=== PATIENT | female | born 1980 | race Caucasian/White ===

== ENCOUNTER 2018-04-02 07:15 | Inpatient (IN) | payer OTHER ==
[~2018-04-02 07:15] MED LIST: Dexamethasone 4 MG/ML SDV ONE; Glycopyrrolate 0.2 MG/ML 5 ML MDV ONE; Neostigmine Methylsulfate 1 MG/ML 5 ML Syringe ONE; Ondansetron 4 MG/2 ML SDV ONE; Propofol 200 MG/20 ML SDV ONE; Rocuronium 50 MG/5 ML Vial ONE; Succinylcholine 200 MG/10 ML MDV ONE; cefOXitin 2 GM Vial ONE; fentaNYL 250 MCG/5 ML SDV ONE
[2018-04-02] MEDS ORDERED: Succinylcholine 200 MG/10 ML MDV ONE (08:00)
[2018-04-02] MEDS ORDERED: Propofol 200 MG/20 ML SDV ONE (08:00)
[2018-04-02] MEDS ORDERED: Neostigmine Methylsulfate 1 MG/ML 5 ML Syringe ONE (08:00)
[2018-04-02] MEDS ORDERED: Ondansetron 4 MG/2 ML SDV ONE (08:00)
[2018-04-02] MEDS ORDERED: Glycopyrrolate 0.2 MG/ML 5 ML MDV ONE (08:00)
[2018-04-02] MEDS ORDERED: Dexamethasone 4 MG/ML SDV ONE (08:00)
[2018-04-02] MEDS ORDERED: Rocuronium 50 MG/5 ML Vial ONE (08:00)
[2018-04-02] MEDS ORDERED: fentaNYL 250 MCG/5 ML SDV ONE ×2 (08:00→11:05)
[2018-04-02] MEDS ORDERED: Lactated Ringers 1,000 ML ONE (08:07)
[2018-04-02] MEDS ORDERED: Acetaminophen 500 MG Tab PO ONE (08:30)
[2018-04-02] MEDS ORDERED: Gabapentin 300 MG Cap PO ONE (08:30)
[2018-04-02] MEDS ORDERED: Scopolamine 1.5 MG Transdermal Patch TOP SCH (08:30)
[2018-04-02] MEDS ORDERED: Dextrose 5%-Lactated Ringers 1,000 ML IV SCH (08:30)
[2018-04-02] MEDS ORDERED: Celecoxib 200 MG Cap PO ONE (08:30)
[2018-04-02] MEDS ORDERED: Albuterol/Ipratropium 3.0-0.5 MG/3 ML Neb Soln NEB ONE (08:45)
[2018-04-02] MEDS ORDERED: cefOXitin 2 GM in Sodium Chloride 0.9% 50 ML IV ONE (08:45)
[2018-04-02] MEDS ORDERED: Ropivacaine 60 ML, Dexamethasone 8 MG, EPINEPHrine 0.4 MG, Sodium Chloride 0.9% 17.6 ML NERVRT SCH ×4 (09:45)
[2018-04-02] MEDS ORDERED: Lidocaine 2% 100 MG/5 ML Syringe IVPUSH ONE (09:45)
[2018-04-02] MEDS ORDERED: Ketamine 500 MG/5 ML MDV IV SCH (09:45)
[2018-04-02] MEDS ORDERED: Lidocaine 0.4%/D5W 2 GM/500 ML BAG IV SCH (09:45)
[2018-04-02] MEDS ORDERED: hydrOXYzine HCl 100 MG/2 ML SDV IM ONE (13:10)
[2018-04-02] MEDS ORDERED: Insulin Aspart 100 Units/ML 3 ML Pen SUBCUT PRN (15:00)
[2018-04-02] MEDS ORDERED: Labetalol 20 MG/4 ML Syringe IVPUSH PRN (15:00)
[2018-04-02] MEDS ORDERED: 50% Dextrose in Water 50 ML Syringe IVPUSH PRN (15:00)
[2018-04-02] MEDS ORDERED: hydrOXYzine HCl 100 MG/2 ML SDV IM PRN (15:00)
[2018-04-02] MEDS ORDERED: Ondansetron 4 MG/2 ML SDV IVPUSH PRN (15:00)
[2018-04-02] MEDS ORDERED: Glucagon,Human Recombinant 1 MG Vial IM PRN (15:00)
[2018-04-02] MEDS ORDERED: Metoclopramide 10 MG/2 ML SDV IVPUSH PRN (15:00)
[2018-04-02] MEDS ORDERED: Albuterol/Ipratropium 3.0-0.5 MG/3 ML Neb Soln INH PRN (15:00)
[2018-04-02] MEDS ORDERED: diphenhydrAMINE 50 MG/ML SDV IVPUSH PRN (15:00)
[2018-04-02] MEDS: Albuterol/Ipratropium 3.0-0.5 MG/3 ML Neb Soln INH SCH ×2 (15:20→21:20)
[2018-04-02] MEDS: Acetaminophen Soln 650 MG/20.3 ML UD Cup PO SCH ×2 (15:38→21:24)
[2018-04-02] MEDS: Gabapentin 300 MG Cap PO SCH ×2 (15:39→21:24)
[2018-04-02] MEDS: cefOXitin 2 GM in Sodium Chloride 0.9% 50 ML IV SCH ×2 (15:48→21:19)
[2018-04-02] MEDS ORDERED: MVI, Adult with Vitamin K 10 ML, Thiamine 200 MG, Chromium/Copper/Mang/Selen/Zn 1 ML in... IV SCH ×4 (16:00)
[2018-04-02] MEDS ORDERED: Pantoprazole 40 MG Vial IVPUSH SCH (16:00)
[2018-04-02] MEDS: Heparin Sodium 5,000 Units/ML Vial SUBCUT SCH (19:53)
[2018-04-02] MEDS: Dextrose 5%-Lactated Ringers 1,000 ML IV SCH (23:07)
[2018-04-03] MEDS ORDERED: Iohexol 647 MG/ML 50 ML SDV PO STA (02:00)
[2018-04-03] MEDS: Acetaminophen Soln 650 MG/20.3 ML UD Cup PO SCH ×4 (04:08→21:00)
[2018-04-03] MEDS: cefOXitin 2 GM in Sodium Chloride 0.9% 50 ML IV SCH ×2 (04:09→09:09)
[2018-04-03] MEDS: Dextrose 5%-Lactated Ringers 1,000 ML IV SCH (06:18)
--- NOTE | 2018-04-03 06:34 | PCM.PN ---
- General Info Date of Service: 04/03/18 Admission Dx/Problem (Free Text): Obesity. Scheduled laproscopic RNY gastric bypass. Subjective Update: Patient is POD #1. Vitals were stable throughout the night without any major problems over night. She is up and ambulating and becomes tachycardic when up and ambulating. Pain is controlled on current regimen and lidocaine was discontinued last night. Denies nausea or any other current symptoms. Functional Status: Reports: Pain Controlled, Tolerating Diet, Ambulating, Urinating, New Symptoms - Review of Systems General: Reports: No Symptoms HEENT: Reports: No Symptoms Pulmonary: Reports: No Symptoms Cardiovascular: Reports: No Symptoms Gastrointestinal: Reports: No Symptoms Genitourinary: Reports: No Symptoms Musculoskeletal: Reports: No Symptoms Skin: Reports: No Symptoms Neurological: Reports: No Symptoms Psychiatric: Reports: No Symptoms Systems Review Comment:: Remainder of ROS is negative for any pertinent positives or negatives. - Patient Data Vitals - Most Recent: Last Vital Signs Temp 96.8 F 04/03/18 06:00 Pulse 107 H 04/03/18 06:00 Resp 16 04/03/18 06:00 BP 120/68 04/03/18 06:00 Pulse Ox 89 L 04/03/18 06:00 Weight - Most Recent: 297 lb 0.4 oz I&O - Last 24 Hours: Intake & Output 04/02/18 04/02/18 04/03/18 14:59 22:59 06:59 Intake Total 887 1873 Output Total 465 2330 Balance 422 -457 Lab Results Last 24 Hours: Laboratory Results - last 24 hr 04/02/18 04/02/18 04/02/18 Range/Units 08:05 08:05 08:43 Hemoglobin A1c 5.9 (4.5-6.2) % Urine HCG, Qual Negative Blood Type O POSITIVE Gel Antibody Screen Negative Med Orders - Current: Current Medications Acetaminophen (Tylenol) 650 mg PO Q6H [facility] Last Admin: 04/03/18 04:08 Dose: 650 mg Albuterol/Ipratropium (Duoneb 3.0-0.5 Mg/3 Ml) 3 ml INH QIDRT [facility] Last Admin: 04/02/18 21:20 Dose: 3 ml Albuterol/Ipratropium (Duoneb 3.0-0.5 Mg/3 Ml) 3 ml INH ASDIRECTED PRN PRN Reason: BREATHING Celecoxib (Celebrex) 200 mg PO DAILY@0800 [facility] Cyanocobalamin (Vitamin B12) 1,000 mcg IM ONETIME ONE Stop: 04/04/18 09:01 Dextrose/Water (Dextrose 50% In Water) 50 ml IVPUSH ONETIME PRN PRN Reason: ACCUCHECK LESS THAN 70 Diphenhydramine HCl (Benadryl) 25 - 50 mg IVPUSH Q4H PRN PRN Reason: ITCHING Gabapentin (Neurontin) 600 mg PO TID [facility] Last Admin: 04/02/18 21:24 Dose: 600 mg Glucagon (Glucagen) 1 mg IM ONETIME PRN PRN Reason: ACCUCHECK LESS THAN 70 Heparin Sodium (Porcine) (Heparin Sodium) 5,000 units SUBCUT Q12H [facility] Last Admin: 04/02/18 19:53 Dose: 5,000 units Hydroxyzine HCl (Vistaril) 75 - 100 mg IM Q4H PRN PRN Reason: pain Dextrose/Lactated Ringer's (Dextrose 5%-Lactated Ringers) 1,000 mls @ 175 mls/ hr IV ASDIRECTED [facility] Last Admin: 04/03/18 06:18 Dose: 175 mls/hr Multivitamins/Minerals 10 ml/Thiamine HCl 200 mg/ Chromium/Copper/Manganese/ Seleni/Zn 1 ml/ Dextrose/Lactated Ringer's 1,013 mls @ 175 mls/hr IV DAILY@ 1600 [facility] Last Admin: 04/02/18 16:37 Dose: 175 mls/hr Cefoxitin Sodium 2 gm/ Sodium (Chloride) 50 mls @ 100 mls/hr IV Q6H [facility] Stop: 04/03/18 10:29 Last Admin: 04/03/18 04:09 Dose: 100 mls/hr Insulin Aspart (Novolog) 0 unit SUBCUT Q6H PRN; Protocol PRN Reason: PER CORRECTIONAL DOSING Labetalol HCl (Normodyne) 5 - 15 mg IVPUSH Q1H PRN PRN Reason: SBP over 160 OR DBP over 95 Metoclopramide HCl (Reglan) 10 mg IVPUSH Q6H PRN PRN Reason: NAUSEA NOT CONTROL BY ZOFRAN Miscellaneous Information (Remove Patch) 1 ea TRDERM ONETIME ONE Stop: 04/04/18 10:01 Scopolamine Patch (Check) 1 each TOP DAILY [facility] Stop: 04/04/18 15:01 Ondansetron HCl (Zofran) 4 mg IVPUSH Q4H PRN PRN Reason: Nausea/Vomiting Last Admin: 04/02/18 21:53 Dose: 4 mg Pantoprazole Sodium (Protonix Iv) 40 mg IVPUSH Q24H [facility] Last Admin: 04/02/18 15:38 Dose: 40 mg Scopolamine (Transderm-Scop) 1.5 mg TOP Q72H [facility] Stop: 04/04/18 09:00 Last Admin: 04/02/18 08:14 Dose: 1.5 mg Discontinued Medications Acetaminophen (Tylenol Extra Strength) 1,000 mg PO ONETIME ONE Stop: 04/02/18 08:31 Last Admin: 04/02/18 08:10 Dose: 1,000 mg Albuterol/Ipratropium (Duoneb 3.0-0.5 Mg/3 Ml) 3 ml NEB ONETIME ONE Stop: 04/02/18 08:46 Last Admin: 04/02/18 08:49 Dose: 3 ml Cefoxitin Sodium (Mefoxin) Confirm Administered Dose 2 gm .ROUTE .STK-MED ONE Stop: 04/02/18 06:45 Last Admin: 04/02/18 11:08 Dose: 2 gm Celecoxib (Celebrex) 200 mg PO ONETIME ONE Stop: 04/02/18 08:31 Last Admin: 04/02/18 08:10 Dose: 200 mg Ropivacaine 60 ml/Dexamethasone 8 mg/Epinephrine HCl 0.4 mg/ Sodium Chloride 17.6 ml 0 ml NERVRT ASDIRECTED [facility] Last Admin: 04/02/18 11:01 Dose: 80 syringe Dexamethasone (Dexamethasone) Confirm Administered Dose 4 mg .ROUTE .STK-MED ONE Stop: 04/02/18 07:00 Dexamethasone (Dexamethasone) Confirm Administered Dose 4 mg .ROUTE .STK-MED ONE Stop: 04/02/18 08:01 Fentanyl (Sublimaze) Confirm Administered Dose 250 mcg .ROUTE .STK-MED ONE Stop: 04/02/18 07:00 Fentanyl (Sublimaze) Confirm Administered Dose 250 mcg .ROUTE .STK-MED ONE Stop: 04/02/18 08:01 Fentanyl (Sublimaze) Confirm Administered Dose 250 mcg .ROUTE .STK-MED ONE Stop: 04/02/18 11:06 Gabapentin (Neurontin) 600 mg PO ONETIME ONE Stop: 04/02/18 08:31 Last Admin: 04/02/18 08:10 Dose: 600 mg Glycopyrrolate (Robinul) Confirm Administered Dose 1 mg .ROUTE .STK-MED ONE Stop: 04/02/18 07:00 Glycopyrrolate (Robinul) Confirm Administered Dose 1 mg .ROUTE .STK-MED ONE Stop: 04/02/18 08:01 Hydroxyzine HCl (Vistaril) 100 mg IM ONETIME ONE Stop: 04/02/18 13:11 Last Admin: 04/02/18 13:08 Dose: 100 mg Cefoxitin Sodium 2 gm/ Sodium (Chloride) 50 mls @ 100 mls/hr IV ONETIME ONE Stop: 04/02/18 09:14 Last Admin: 04/02/18 10:36 Dose: 100 mls/hr Dextrose/Lactated Ringer's (Dextrose 5%-Lactated Ringers) 1,000 mls @ 100 mls/ hr IV ASDIRECTED [facility] Last Admin: 04/02/18 09:09 Dose: 100 mls/hr Lidocaine HCl/Dextrose (Lidocaine 2 Gm/D5w 500 Ml) 2 gm in 500 mls @ 30 mls/hr IV .[id number] [facility] Stop: 04/03/18 02:24 Last Admin: 04/02/18 13:52 Dose: 2 mg/min, 30 mls/hr Ketamine HCl 100 mg/ Sodium (Chloride) 100 mls @ 17.7 mls/hr IV ASDIRECTED [facility] Lactated Ringer's (Ringers, Lactated) Confirm Administered Dose 1,000 mls @ as directed .ROUTE .STK-MED ONE Stop: 04/02/18 08:08 Iohexol (Omnipaque-300) 50 ml PO .ASDIRECTED [facility] Stop: 04/03/18 02:01 Last Admin: 04/03/18 02:12 Dose: 50 ml Ketamine HCl (Ketalar) 30 mg IV ASDIRECTED [facility] Lidocaine HCl (Xylocaine 2%) 130 mg IVPUSH ONETIME ONE Stop: 04/02/18 09:46 Last Admin: 04/02/18 13:52 Dose: Not Given Neostigmine Methylsulfate (Neostigmine) Confirm Administered Dose 5 mg .ROUTE .STK-MED ONE Stop: 04/02/18 07:00 Neostigmine Methylsulfate (Neostigmine) Confirm Administered Dose 5 mg .ROUTE .STK-MED ONE Stop: 04/02/18 08:01 Ondansetron HCl (Zofran) Confirm Administered Dose 4 mg .ROUTE .STK-MED ONE Stop: 04/02/18 07:00 Ondansetron HCl (Zofran) Confirm Administered Dose 4 mg .ROUTE .STK-MED ONE Stop: 04/02/18 08:01 Propofol (Diprivan 20 Ml) Confirm Administered Dose 200 mg .ROUTE .STK-MED ONE Stop: 04/02/18 07:00 Propofol (Diprivan 20 Ml) Confirm Administered Dose 200 mg .ROUTE .STK-MED ONE Stop: 04/02/18 08:01 Rocuronium Garvin (Zemuron) Confirm Administered Dose 50 mg .ROUTE .STK-MED ONE Stop: 04/02/18 07:00 Rocuronium Garvin (Zemuron) Confirm Administered Dose 50 mg .ROUTE .STK-MED ONE Stop: 04/02/18 08:01 Succinylcholine Chloride (Quelicin) Confirm Administered Dose 200 mg .ROUTE .STK -MED ONE Stop: 04/02/18 07:00 Succinylcholine Chloride (Quelicin) Confirm Administered Dose 200 mg .ROUTE .STK -MED ONE Stop: 04/02/18 08:01 - Exam General: Alert, Oriented, Cooperative, No Acute Distress HEENT: Pupils Equal, Mucous Membr. Moist/[place] Neck: Supple Extremities: Normal Range of Motion Skin: Warm, Dry, Intact Neurological: No New Focal Deficit Psy/Mental Status: Alert, Normal Affect, Normal Mood - Problem List Review Problem List Initiated/Reviewed/Updated: Yes - Assessment Assessment:: Status post gastric bypass for obesity. - Plan Plan:: 1. Discontinue Accu checks for blood glucose monitoring 2. Step two diet without cereal 3. Remove and replace Scopolamine patch 4. Celebrex 200mg po qd genesis 5. Discontinue cardiac monitoring 6. Reevaluate prn or in am
[2018-04-03] MEDS ORDERED: Dextrose 5%-Lactated Ringers 1,000 ML IV SCH (07:15)
[2018-04-03] MEDS ORDERED: Levalbuterol HCl 1.25 MG/3 ML Neb NEB PRN (07:39)
[2018-04-03] MEDS: Levalbuterol HCl 1.25 MG/3 ML Neb NEB SCH ×4 (07:48→20:48)
--- NOTE | 2018-04-03 08:19 | PN ---
DATE OF SERVICE: 04/03/2018 The patient is postop day 1 from a laparoscopic Jessica-en-Y gastric bypass and hiatal hernia repair. Clinically, no major problems have been noted overnight. Blood sugars have been satisfactory. She was noted to have some elevated blood sugars preoperatively. A hemoglobin A1c was obtained, which was 5.9. Oral intake has been fair, and we will move up to a step-2 diet today, restart some of her pertinent oral medications, and back down the IV rate and saline lock her if oral intake becomes well established. Domingo Leggett MD Job #: [id number]
[2018-04-03] MEDS: Celecoxib 200 MG Cap PO SCH (08:39)
[2018-04-03] MEDS: Heparin Sodium 5,000 Units/ML Vial SUBCUT SCH ×2 (08:39→20:35)
[2018-04-03] MEDS: Levothyroxine 75 MCG Tab PO SCH (08:39)
[2018-04-03] MEDS: SCOPOLAMINE PATCH CHECK TOP SCH (09:04)
[2018-04-03] MEDS: Gabapentin 300 MG Cap PO SCH ×2 (09:04→16:00)
--- NOTE | 2018-04-03 09:30 | CR ---
UGI wo KUB HISTORY: eval R -Y GBP FINDINGS: After administration of oral contrast, upright views were obtained. Post operative changes gastric bypass. Surgical drains in place. No evidence for leak. Contrast passes freely into proximal small bowel loops. IMPRESSION: No evidence for leak or obstruction.
--- NOTE | 2018-04-03 09:58 | OR ---
DATE OF PROCEDURE: 04/02/2018 PREOPERATIVE DIAGNOSIS: Morbid obesity. POSTOPERATIVE DIAGNOSES: 1. Morbid obesity. 2. Marked hepatomegaly. 3. Paraesophageal diaphragmatic hernia. OPERATIVE PROCEDURE: 1. Laparoscopic Jessica-en-Y gastric bypass along with gastroenterostomy (51440). 2. Preston-Cut needle liver biopsy (56258). 3. Repair of paraesophageal diaphragmatic hernia (65733). ANESTHESIA: General. FILTER BED PLACER: Sophy Cramer PA-C. INDICATION FOR PROCEDURE: This is a 37-year-old presenting with longstanding morbid obesity and increasingly significant comorbidities. After preoperative evaluation and discussion, she wished to proceed with a gastric bypass procedure. Potential risks including bleeding, infection, leaks from various GI tract closures, problems with bowel obstruction over time as well as possibility of cardiopulmonary, septic, or hemorrhagic complications leading to were discussed, and the patient wishes to proceed. DETAILS OF PROCEDURE: The patient was taken to the operating room and after general endotracheal anesthesia was induced, was placed in a lithotomy position; orogastric tube was placed and the abdomen being prepped and draped. At 15 cm inferior, 5 cm left of xiphoid process, a transverse incision was made and the peritoneal cavity entered under direct vision with an Optiview trocar, inflated to 15 mmHg pressure of CO2. Laparoscope was then reinserted. No underlying trocar insertion site injuries were seen. Following this, bilateral subcostal transverse abdominis plane blocks were placed using the standard solution with direct visualization of the needle along the correct location. Following this, 5 additional trocars were placed across the upper mid abdomen. The patient was noted to have a marked hepatomegaly and a Preston-Cut needle biopsy was obtained from left lobe of the liver and minimal bleeding from the biopsy site was controlled with electrocautery. The omentum was then divided in the midline up to the level of the transverse colon. This allowed identification of the small bowel to the ligament of Treitz. Small bowel was then traced out 200 cm distal, at that point was divided transversely with a DONNA stapler. Small bowel was then traced out an additional 150 cm where the [id number] enteroenterostomy was accomplished with internal firing of the Endo-DONNA 60 mm stapler. Common openings were then closed transversely with the same stapler and the angles anastomosed, and mesenteric defect approximated with some 0 Ethibond stitch along with fibrin sealant. The divided end of the Jessica limb was then from the mesentery for a few centimeters, which allowed an antecolic position of the Jessica limb up to the level of the gastroesophageal junction without tension. The liver was then retracted anteriorly. The patient was noted to have a moderate-sized paraesophageal diaphragmatic hernia. This contained some perigastric fat along with gastric fundus prolapsing in a plane anterior to the course of the esophagus. These were reduced and peritoneum divided and reflected downward. An anterior repair of the diaphragmatic hernia was then accomplished with some 0 Ethibond sutures reinforced with PTFE pledgets. The gastrointestinal balloon catheter was then inflated to 15 mL and pulled up snugly against the EG junction. Gastric wall of the apex balloon was then marked with electrocautery, and balloon catheter deflated and pulled up in the esophagus. The lesser omental tissue adjacent was then divided adjacent to the gastric cardia allowing dissection behind the stomach. The pouch formation was initiated with a transverse firing of the DONNA stapler at the level of the cauterized shad in the gastric cardia. Pouch was then completed with 2 additional firings of DONNA staplers up to and through the angle of His. Upon completion of the pouch, both staple lines were noted to be intact. The anvil of a 25-mm EEA stapler was attached to Steedman sump type tube and brought down through a small opening in the gastric pouch, allowing the anvil likewise to be pulled down to within the gastric pouch. The divided end of the Jessica limb was then opened and the main body of the EEA stapler was passed several centimeters in the lumen of the small bowel, brought up the anvil, thus creating the gastrojejunostomy. Upon removal of stapler, double donuts of mucosa were noted. The small bowel was closed off with a vascular staple line. Gastrojejunostomy was reinforced with some 3-0 Vicryl seromuscular stitch along with fibrin sealant. Leak test was accomplished with injection of 120 mL of air in the gastric pouch while submerged with cefoxitin-containing saline solution. No leaks were identified. Two Joe-Wu drains were then placed adjacent to the gastric cardia and taken out through the subcostal trocar sites. No further problems noted. Trocars removed. The peritoneal cavity deflated. The incisions were closed with some 4-0 Vicryl subcuticular stitch and drains affixed with some 4-0 Vicryl stitch as well. The patient was taken to the recovery room in satisfactory condition. There were no evident complications. Physician account management assistant, Sophy Cramer, played an essential role in assisting in this case, helping to position the patient, retract structures as needed as well as suturing and cutting sutures when indicated. Her presence improved patient safety and decreased the operative time. Domingo Leggett MD Job #: [id number]
[2018-04-03] MEDS ORDERED: Sodium Chloride 0.9% 10 ML Syringe IV PRN (11:34)
[2018-04-03] MEDS: Albuterol/Ipratropium 3.0-0.5 MG/3 ML Neb Soln INH SCH (11:36)
[2018-04-03] MEDS ORDERED: MVI, Adult with Vitamin K 10 ML, Thiamine 200 MG, Chromium/Copper/Mang/Selen/Zn 1 ML in... IV SCH ×4 (16:00)
[2018-04-03] MEDS ORDERED: Pantoprazole 40 MG Delayed-Release Granules 1 Packet PO SCH (16:00)
[2018-04-03] MEDS ORDERED: lamoTRIgine 100 MG, lamoTRIgine 50 MG PO SCH ×2 (21:00)
[2018-04-03] MEDS ORDERED: Gabapentin 300 MG Cap PO SCH (21:00)
[2018-04-03] MEDS ORDERED: traZODone 50 MG Tab PO SCH (21:00)
[2018-04-03] MEDS ORDERED: FLUoxetine 20 MG Cap PO SCH (21:00)
[2018-04-04] MEDS: Acetaminophen Soln 650 MG/20.3 ML UD Cup PO SCH ×2 (03:09→09:10)
[2018-04-04] MEDS: Heparin Sodium 5,000 Units/ML Vial SUBCUT SCH (07:41)
[2018-04-04] MEDS: Celecoxib 200 MG Cap PO SCH (07:41)
[2018-04-04] MEDS: Levothyroxine 75 MCG Tab PO SCH (07:41)
[2018-04-04] MEDS: Levalbuterol HCl 1.25 MG/3 ML Neb NEB SCH (07:49)
--- NOTE | 2018-04-04 08:27 | DISCH ---
ADMISSION DIAGNOSES: Morbid obesity, BMI is 47.9, hypothyroidism, anxiety, eating disorder, hypercholesterolemia, impaired fasting glucose, major depression disorder, mild intermittent asthma, myopia, radicular pain of left lower extremity, and somatic dysfunction of lumbar region. DISCHARGE DIAGNOSES: Laparoscopic Jessica-en-Y gastric bypass surgery, liver biopsy, repair of diaphragmatic hernia for morbid obesity, hepatomegaly, and diaphragmatic hernia. Date of surgery 04/02/2018. Surgeon, Domingo Leggett M.D. HISTORY: Carla Downing is a 37-year-old female with longstanding history of morbid obesity and increasing comorbidities. After preoperative evaluation and discussion of possible risks and possible complications, she wished to proceed with surgical procedure. HOSPITAL COURSE: Carla had her surgery on 04/02/2018. She had no operative complications. On postop day #1, her upper GI was normal. She was started on a step-2 gastric bypass diet without cereal. She received dietary instruction on postop day 2. Her activity was good. Vital signs stable. Oral intake adequate. She received adequate postoperative education, and she was able to be discharged to home. PHYSICAL EXAMINATION: GENERAL: Carla is a 37-year-old female. VITAL SIGNS: Height is 5 feet 6 inches. Weight is 297 pounds. BMI is 47. TPR 97.3, 95, 15, blood pressure 126/84. HEENT: Negative. NECK: Supple. HEART: Regular rate and rhythm. LUNGS: Clear. ABDOMEN: Sutures intact, 4 x 4 over AUDI drain site. Abdominal binder is on. EXTREMITIES: Without peripheral edema. No calf tenderness. DISPOSITION: Discharged to home. CONDITION: Stable and improving. FOLLOWUP: Followup appointment with Sophy Cramer PA-C on 04/12/2018 at 10:00 a.m. HOME MEDICATION: 1. Tylenol 650 mg q.6 hours chewable or liquid p.r.n. pain. 2. Celebrex 200 mg p.o. daily #14. 3. Milk of magnesia 30 mL, take 1 today and 1 tomorrow p.r.n. constipation, 2 are sent home with patient. 4. Zofran ODT 4 mg sublingual q.6 hours p.r.n. nausea #30. She is to resume her home medication of: 1. Prozac 80 mg oral at bedtime. 2. Neurontin 600 mg oral q.a.m. 3. Gabapentin 1800 mg p.o. at bed time. 4. Levothyroxine 150 mcg mg oral daily. 5. Omeprazole 40 mg oral twice daily. 6. Lamictal 150 mg oral at bedtime. 7. Trazodone 100-200 mg oral at bedtime. Discontinue taking biotin, vitamin D3, multivitamin until after 1st postop appointment. DISCHARGE DIET: Step-2 gastric bypass diet with no cereal until 04/16/2018. Drink 8 to 10 glasses of water per day. ACTIVITY: No lifting greater than 10 pounds for 2 weeks. Other activity, walk at least 6 times daily inside your home. Driving, do not drive for 1 week. Shower/bathing, may shower. DISCHARGE INSTRUCTIONS: Notify provider if any fever, increased pain, nausea, or vomiting. Keep site clean and dry. Wear abdominal binder for 2 weeks and then as tolerated. Use incentive spirometer 10 times every hour while awake for 1 week.
[2018-04-04] MEDS ORDERED: Cyanocobalamin (Vitamin B12) 1,000 MCG/ML SDV IM ONE (09:00)
[2018-04-04] MEDS: SCOPOLAMINE PATCH CHECK TOP SCH (09:09)
[2018-04-04] MEDS: Gabapentin 300 MG Cap PO SCH (09:10)
== END 2018-04-04 09:55 | disposition home or self-care (01) | DRG 621 ==
LOC: EDSTATUS 07:15 → JP.SDS 07:45 → JP.SDSSCHI 07:45 → JP.2SS 12:30
PROVIDERS: ADMIT Surgery; ATTEND Surgery
PROC: 0D164ZA Bypass Stomach to Jejunum, Percutaneous Endoscopic Approach (ICD-10-PCS; principal; 2018-04-02)
PROC: 0FB24ZX Excision of Left Lobe Liver, Percutaneous Endoscopic Approach, Diagnostic (ICD-10-PCS; 2018-04-02)
PROC: 0BQT4ZZ Repair Diaphragm, Percutaneous Endoscopic Approach (ICD-10-PCS; 2018-04-02)
PROC: 3E0T3BZ Introduction of Anesthetic Agent into Peripheral Nerves and Plexi, Percutaneous Approach (ICD-10-PCS; 2018-04-02)
DX: E66.01 Morbid (severe) obesity due to excess calories (principal); Z68.42 Body mass index [BMI] 45.0-49.9, adult; R16.0 Hepatomegaly, not elsewhere classified; K44.9 Diaphragmatic hernia without obstruction or gangrene; E03.9 Hypothyroidism, unspecified; F41.9 Anxiety disorder, unspecified; F50.9 Eating disorder, unspecified; E78.00 Pure hypercholesterolemia, unspecified; R73.01 Impaired fasting glucose; F32.9 Major depressive disorder, single episode, unspecified; J45.20 Mild intermittent asthma, uncomplicated; H52.10 Myopia, unspecified eye; M99.03 Segmental and somatic dysfunction of lumbar region
CPT/HCPCS: 36415; 74240; 74240-26; 81025; 82962; 83036; 86850; 86900; 86901; 94640; A9270-GY; C9113; J0171; J0330; J0694; J1100; J1644; J2001; J2405; J2704; J2710; J2795; J3010; J3410; J3411; J3420; J7030; J7042; J7050; J7120; J7612; J7620; Q9967